=== PATIENT | female | born 1940 | race Caucasian/White ===

== ENCOUNTER → 2023-11-17 14:56 | Outpatient (REF) | payer MEDICARE, BC, SELFPAY | LOC: WDC 14:56 | PROVIDERS: ATTENDING PHYSICIAN Obstetrics & Gynecology; FAMILY PHYSICIAN Internal Medicine Geriatric Medicine | DX: Z12.31 Encounter for screening mammogram for malignant neoplasm of breast (principal) | CPT/HCPCS: 77063; 77067 ==

== ENCOUNTER → 2024-02-06 09:10 | Outpatient (REF) | payer MEDICARE, BC, SELFPAY | LOC: RCS 09:10 | PROVIDERS: ATTENDING PHYSICIAN Nurse Practitioner; FAMILY PHYSICIAN Internal Medicine Geriatric Medicine | DX: I34.0 Nonrheumatic mitral (valve) insufficiency (principal) | CPT/HCPCS: 93306 ==

== ENCOUNTER → 2024-02-17 07:57 | Outpatient (REF) | payer MEDICARE, BC, SELFPAY ==
[2024-02-17 09:06] LABS: % Basophils 0.8 % (0-2); % Eosinophils 5.8 % (0-6); % Immature Granulocytes 0.3 % (0-0.5); % Lymphocytes 21.8 % (20.5-51.1); % Monocytes 9.3 % (1.7-9.3); Absolute Basophils 0.1 10^3/uL (0-0.2); Absolute Eosinophils 0.3 10^3/uL (0-0.7); Absolute Lymphocytes 1.3 10^3/uL (1.2-3.4); Absolute Monocytes 0.6 10^3/uL (0.1-0.6); Absolute Neutrophils 3.7 10^3/uL (1.4-6.5); Hematocrit 42.6 % (37.0-47.0); Hemoglobin 14.5 g/dL (12.0-16.0); Mean Corpuscular Hgb 29.7 pg (27.0-31.0); Mean Corpuscular Volume 87.1 fL (81.0-99.0); Mean Platelet Volume 12.1 fL (7.4-10.4); Nucleated Red Blood Cells % 0 %; Platelet Count 197 10^3/uL (130-400); Red Blood Cell Count 4.89 10^6/uL (4.20-5.40); White Blood Cell Count 5.9 10^3/uL (4.8-10.8)
[2024-02-17 10:20] LABS: ALT (SGPT) 18 U/L (0-35); AST (SGOT) 28 U/L (14-36); Albumin 4.4 g/dl (3.5-5.0); Alkaline Phosphatase 89 U/L (38-126); Blood Urea Nitrogen 14 mg/dl (7-17); Calcium 9.9 mg/dl (8.4-10.2); Carbon Dioxide 29 mmol/L (22-30); Chloride 103 mmol/L (98-107); Glucose 82 mg/dl (70-99); HDL Cholesterol 77 mg/dl; LDL Cholesterol, Calculated 96 mg/dl; Potassium 4.6 mmol/L (3.5-5.1); Sodium 139 mmol/L (135-145); Total Bilirubin 0.8 mg/dl (0.2-1.3); Total Cholesterol 197 mg/dl (50-199); Total Protein 6.9 g/dl (6.3-8.2); Triglyceride 124 mg/dl (10-149); Very Low Density Lipoprotein 24 mg/dl (0-30); eGFR > 60.00
[2024-02-17 11:02] LABS: Urine Albumin Negative (Neg - Trace); Urine Bilirubin Negative (Negative); Urine Character Clear (Clear); Urine Color Yellow; Urine Glucose Negative (Negative); Urine Ketone Negative (Negative); Urine Leukocyte Trace (Negative); Urine Nitrite Negative (Negative); Urine Occult Blood Trace (Negative); Urine Specific Gravity 1.015 (<1.030); Urine Urobilinogen Negative (Neg - 1+); Urine pH 6.5 (5.0-9.0)
== END ==
LOC: REG 07:57
PROVIDERS: ATTENDING PHYSICIAN Internal Medicine Geriatric Medicine
DX: I34.0 Nonrheumatic mitral (valve) insufficiency (principal); F41.8 Other specified anxiety disorders; I48.0 Paroxysmal atrial fibrillation; R00.2 Palpitations; E78.2 Mixed hyperlipidemia; G30.9 Alzheimer's disease, unspecified; Z13.31 Encounter for screening for depression
CPT/HCPCS: 36415; 80053; 80061; 81003; 81015; 85025

== ENCOUNTER → 2024-10-26 11:04 | Outpatient (REF) | payer MEDICARE, BC, SELFPAY ==
[2024-10-26 12:49] LABS: C-Reactive Protein < 5.00 mg/L (0.0-10.00)
[2024-10-26 13:41] LABS: Erythrocyte Sed Rate 3 mm/hour (0-20)
== END ==
LOC: REG 11:04
PROVIDERS: ATTENDING PHYSICIAN Student in an Organized Health Care Education/Training Program; FAMILY PHYSICIAN Internal Medicine Geriatric Medicine
DX: M25.551 Pain in right hip (principal); Z96.641 Presence of right artificial hip joint
CPT/HCPCS: 36415; 85652; 86140

== ENCOUNTER → 2024-11-02 08:17 | Outpatient (REF) | payer MEDICARE, BC, SELFPAY | LOC: HWRAD 08:17 | PROVIDERS: ATTENDING PHYSICIAN Student in an Organized Health Care Education/Training Program; FAMILY PHYSICIAN Internal Medicine Geriatric Medicine | DX: M25.551 Pain in right hip (principal) | CPT/HCPCS: 73700 ==

== ENCOUNTER 2024-11-29 15:22 | Inpatient (IN) | payer MEDICARE, BC, SELFPAY ==
[2024-11-28 16:55] VITALS: BP 192/98
--- NOTE | 2024-11-28 17:37 | ED.GENMED ---
History of Present Illness
General
Chief Complaint: Abdominal Symptoms
Source: patient and spouse
Exam Limitations: none
Time Seen by Provider: 11/28/24 17:36
Nursing documentation reviewed up to this point in time: agreed with
History of Present Illness
History of Present Illness:
84 yo female with h/o afib on Eliquis, mitral regurgitation, anxiety/depression, migraines presents for dizziness, nausea and lightheadedness. She went to gym and did treadmill as usual at 1:30-2:00 p.m. at bedside states she was puttering
around the house around 3 p.m. when she said she became suddenly dizzy, lightheaded and nauseous. No vomiting. He took her BP and it was 176/105 and she usually has normal BP, She feels nauseous now but not dizzy or lightheaded. Denies recent head
trauma. Denies change in vision. Denies CP, SOB or abdominal pain. Denies UTI symptoms
Past History
Past History
ED Past Medical History: Arrthythmia (A-fib on Eliquis), Psychiatric (Anxiety/depression, migraines) and Other (Mitral regurgitation)
ED Past Surgical History: Orthopedic and Other (Left inguinal hernia repair, umbilical hernia repair)
Social History
Tobacco: Non-smoker
Alcohol: Occasional
Personal:
Living: with family
Review of Systems
Review of Systems
Allergies reviewed?: Yes
All Other Systems: ROS reviewed and negative except as documented in HPI and ROS
Constitutional: Denies fever or fatigue
Respiratory: Denies trouble breathing
Cardiac: Denies chest pain
ABD/GI: Reports nausea; Denies abdominal pain or vomiting
Musculoskeletal: Reports no symptoms; Denies edema
Skin: Reports no symptoms
Neurological: Reports dizzy; Denies headache, weakness or numbness
Phy Exam
Physical Exam
Physical Exam:
GENERAL: No acute distress. A&Ox3.
CONSTITUTIONAL: Afebrile.
EYES: clear, conjunctivae normal
ENMT: moist mucus membranes, Pharynx nl
RESPIRATORY: Regular respirations, nonlabored, lungs clear.
CARDIOVASCULAR: Regular rate and rhythm, no murmurs, no rubs.
GI: Soft, nontender, normal BS
MUSCULOSKELETAL: Moves with ease. Well perfused.
SKIN: Warm, dry, pink
PSYCH: Normal mood and affect. Well kept, interactive and appropriate
NEUROLOGIC: Awake, alert and oriented. CN 2-12 intact. Finger to nose intact. Rhomberg neg. Ambulates well with steady gait.. No focal neurological deficits
Course
Orders/Labs/Results
Orders:
Orders
11/28/24 16:55
EKG [Electrocardiogram (*1)] Urgent
Reason for Study: Abdominal Pain
EKG- Treatment ONCE
11/28/24 17:46
0.9% Sodium Chloride 500 ml [Nss] 500 ml IV BOLUS
Ondansetron Injectable [Zofran] 4 mg IV NOW STA
11/28/24 17:47
CT Head W/o Iv Contrast Urgent
Comment:
Reason For Exam: sudden onset nausea, dizziness on Eliquis
Ondansetron Injectable [Zofran] 4 mg .ROUTE .[facility]
11/28/24 18:05
Complete Blood Count/With Diff Urgent
Comprehensive Metabolic Panel Urgent
11/28/24 19:23
UA Reflex to Culture [Urinalysis Reflex To Culture] Urgent
Date Specimen was Collected: 11/28/24
Time Specimen was Collected: 19:19
Urine Microscopic Reflex Cult Urgent
Urine Culture Urgent
LESTER Source: U
Specimen Description:
Date Specimen was Collected: 11/28/24
Time Specimen was Collected: 19:19
11/28/24 20:35
Blood Culture Urgent
LESTER Source: Blood/Venous
Specimen Description:
11/28/24 22:32
Metoclopramide [Reglan] 5 mg IV NOW STA
11/28/24 22:43
CRP [C-Reactive Protein] Stat
ESR [Erythrocyte Sed Rate] Stat
Troponin I Stat
11/28/24 22:58
Sotalol [Betapace] 80 mg PO NOW STA
11/28/24 22:59
CR Chest - 2 Views Stat
Comment:
Reason For Exam: unexplained leukocytosis, rule out infiltrate
11/28/24 23:00
Flush (0.9% Sodium Chloride) [Flush (Nss)] See Dose Instructions IV PER PROTOCOL
Abnormal Lab Results
11/28/24 11/28/24
18:05 19:23
WBC 12.1 H 10^3/uL
(4.8-10.8)
MPV 11.8 H fL
(7.4-10.4)
Absolute Neuts (auto) 9.7 H 10^3/uL
(1.4-6.5)
Neutrophils % 80.4 H %
(42.2-75.2)
Lymphocytes % 10.2 L %
(20.5-51.1)
Glucose 123 H mg/dl
(70-99)
Ur Occult Blood Reflex 2+ A
(Negative)
Urine RBC 3-6 A /HPF
(0-2)
Urine Bacteria (Reflex) Moderate A
(Negative)
11/28/24 18:05
11/28/24 18:05
Vital Signs
Initial and Last Documented VS:
Initial Vital Signs
Temp Pulse Resp BP Pulse Ox
98.8 F 55 17 192/98 99
11/28/24 16:55 11/28/24 16:55 11/28/24 16:55 11/28/24 16:55 11/28/24 16:55
Last Documented Vital Signs
Temp Pulse Resp BP Pulse Ox
98.8 F 61 17 170/77 98
11/28/24 16:55 11/28/24 20:30 11/28/24 20:30 11/28/24 19:34 11/28/24 19:34
MDM/Problems Addressed
Differential Diagnosis Includes:
Posterior CVA/TIA, brain bleed
BPPV, vestibular neuritis, Menier's
MDM/Problems Addressed:
84 yo female with h/o dementia, afib on Eliquis, mitral regurgitation, anxiety/depression, migraines presents for dizziness, nausea and lightheadedness. She went to gym and did treadmill as usual at 1:30-2:00 p.m. at bedside states she was
puttering around the house around 3 p.m. when she said she became suddenly dizzy, lightheaded and nauseous. No vomiting. He took her BP and it was 176/105 and she usually has normal BP, She feels nauseous now but not dizzy or lightheaded. Denies
recent head trauma. Denies change in vision. Denies CP, SOB or abdominal pain. Denies UTI symptoms
Afebrile, NAD
No focal neuro deficits
6:30 p.m.
CBC: WBC 12.1, not clinically significant, otherwise unremarkable
CMP normal
U/A: no sign of infection
, Sylvester Giron MD at bedside is concerned for endocarditis as when she had it once in the past (2005?) she had very mild elevation of WBC and not many other symptoms. He states PCP at that timejust by chance ordered Blood cultures that came
back positive. He is requesting blood cultures.
Discussed with Dr. Villaseñor who agrees to one set of blood cultures
She denies feeling dizzy or lightheaded now. She is not a good historian as she has dementia.
She has no focal neurological deficits, no ataxia, no nystagmus, but has persistent nausea and was complaining of sudden onset of dizziness and has high blood pressure which states is unusual for her.
Cannot rule out posterior stroke.
agrees with all of above.
I recommend admission for neuro exam and MRI. Pt is ejvonant that she does not want to stay
9:[address] radiology report read: No acute intracranial abnormality
10:00 p.m.
Pt remains nauseous despite Zofran x 2. Denies dizziness at this time.
Plan: Admit:
Case discussed with Dr. Villaseñor who agrees with plan
Hospitalist notified of admission.
Pt to stay with her
BP improving now 162/79
*Critical Care Note
Total Time (30-74mins, 75-104mins- exclusive of procedures): Not Applicable
ED Attending Note
-
Portions of this chart may have been created with voice recognition software.� Occasional wrong word or��sound alike� substitutions may have occurred due to the inherent limitations of voice recognition software.
Discharge Plan
Departure
Patient Disposition: Admit
Date of Disposition: 11/28/24
Time of Disposition: 21:58
Admit to: Med/Surg
Presentation/result/management discussed w/ accepting MD/DO: Hospitalist
Condition: Good
Discharge Problem:
Nausea, Dizziness
Prescriptions:
No Action
tramadol 50 MG tablet
25 - 50 mg PO Q6HPRN PRN (Reason: severe pain/breakthrough pain) Qty: 5 0RF
sotalol 80 MG tablet
80 mg PO Q12H 90 Days Qty: 180 3RF
apixaban [Eliquis] 5 MG tablet
5 mg PO BID Qty: 120 3RF
Referrals:
Emil Ibarra MD [Family Provider] -
Interventions
Interventions:
*Risk Screen - Suicide Last Done: 11/28/24 16:58
*General Assessment Last Done: 11/28/24 16:58
*Neglect/Abuse Screening Last Done: 11/28/24 16:58
*ED COVID-19 Vaccine History Last Done: 11/28/24 16:58
MQ-Bzqhsa-Flqlwzmnpu Assessment Last Done: 11/28/24 17:42
Discharge Date and Time
Print Language: KYRGYZ
[2024-11-28 18:00] VITALS: BP 168/86
[2024-11-28 18:12] LABS: % Basophils 0.5 % (0-2); % Eosinophils 3.6 % (0-6); % Immature Granulocytes 0.3 % (0-0.5); % Lymphocytes 10.2 % (20.5-51.1); % Neutrophils 80.4 % (42.2-75.2); Absolute Basophils 0.1 10^3/uL (0-0.2); Absolute Eosinophils 0.4 10^3/uL (0-0.7); Absolute Lymphocytes 1.2 10^3/uL (1.2-3.4); Absolute Monocytes 0.6 10^3/uL (0.1-0.6); Absolute Neutrophils 9.7 10^3/uL (1.4-6.5); Hematocrit 43.1 % (37.0-47.0); Hemoglobin 14.9 g/dL (12.0-16.0); Mean Corp Hgb Conc. 34.6 g/dL (33.0-37.0); Mean Corpuscular Hgb 30.1 pg (27.0-31.0); Mean Corpuscular Volume 87.1 fL (81.0-99.0); Mean Platelet Volume 11.8 fL (7.4-10.4); Nucleated Red Blood Cells % 0 %; Platelet Count 228 10^3/uL (130-400); Red Blood Cell Count 4.95 10^6/uL (4.20-5.40); Red Cell Dist. Width 13.4 % (11.5-14.5); White Blood Cell Count 12.1 10^3/uL (4.8-10.8)
[2024-11-28] MEDS: NSS 500 IV (18:13)
[2024-11-28] MEDS: ZOFRAN 4 MG IV (18:14)
[2024-11-28 18:31] LABS: ALT (SGPT) 20 U/L (0-35); AST (SGOT) 28 U/L (14-36); Albumin 4.7 g/dl (3.5-5.0); Alkaline Phosphatase 102 U/L (38-126); Blood Urea Nitrogen 15 mg/dl (7-17); Calcium 9.8 mg/dl (8.4-10.2); Carbon Dioxide 28 mmol/L (22-30); Chloride 104 mmol/L (98-107); Glucose 123 mg/dl (70-99); Potassium 4.5 mmol/L (3.5-5.1); Sodium 140 mmol/L (135-145); Total Bilirubin 0.6 mg/dl (0.2-1.3); Total Protein 7.1 g/dl (6.3-8.2); eGFR > 60.00
[2024-11-28 19:00] VITALS: BP 174/86
[2024-11-28 19:34] VITALS: BP 170/77
[2024-11-28 19:39] LABS: Urine Albumin Negative (Neg - Trace); Urine Bilirubin Negative (Negative); Urine Character Clear (Clear); Urine Color Yellow; Urine Glucose Negative (Negative); Urine Ketone Negative (Negative); Urine Leukocyte Negative (Negative); Urine Nitrite Negative (Negative); Urine Occult Blood 2+ (Negative); Urine Urobilinogen Negative (Neg - 1+)
[2024-11-28 19:59] LABS: Urine Amorphous Seen; Urine Bacteria Moderate (Negative); Urine White Cell 0-2 /HPF (0-5)
[2024-11-28 21:24] VITALS: BP 158/84
--- NOTE | 2024-11-28 22:26 | HPS.HSE ---
Family Physician
-
Family Physician: Emil Ibarra
Chief Complaint
-
nausea and dizziness
History of Present Illness
This is an 84-year-old female with past medical history significant for atrial fibrillation on anticoagulation and sotalol, history of mitral insufficiency in 2005, history of bacterial endocarditis, anxiety, dementia presented to the emergency
department with acute episode of dizziness and nausea with uncontrolled hypertension.
Patient had been in usual state of health up until the event. She went to the gym in the morning and has 30 minutes of exercise with spouse. Return home in usual state of health. Then at around 3 PM she suddenly felt very sick to her stomach.
She felt nauseous and she felt dizzy. Day attempted to make sure pulse and ultimately got a reading as a sinus rhythm. The measured blood pressure of 170 systolic which was high for her. Spouse reports that her blood pressure is usually around
120s at home and as high as 150s at the physician's office. She has a pulse usually in the 50s. She had a recent echo about a year ago which was unchanged from prior. She denies having any chest pain. She denies exertional dyspnea. She denies
any urinary symptoms. She has not had any fevers or chills. She denies any headache. She has no recent falls and no recent trauma.
In the emergency department she was hypertensive to 192/100 on arrival. Pulse 61, temperature 98.9 and satting 100% on room air. ECG was not nonischemic, sinus bradycardia at a rate of 52. Troponin not done. She had a CT of the head which was
negative for bleed. There was no other acute intracranial process. UA was negative.
She had a white count of 12.1 otherwise hemogram platelets were normal. Electrolytes BUN/creatinine were in the normal range. LFTs were normal. She was given a dose of Zofran. Blood pressure is improving but she still feels quite nauseous.
Medical History
Past Medical History
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
Past Surgical History: Reports Orthopedic (Left hip replacement, right hip replacement) and Other
Social History
Tobacco: Non-smoker
Alcohol: None
Drug: None
Personal:
Employment: Retired
Family History
Family History: Not pertinent
Allergies / Home Medications
Allergies reflects when Allergies were last updated in [employer].
Home Medications with original date entered in [employer]
Allergy/Medication List:
Allergies
Allergy/AdvReac Type Severity Reaction Status Date / Time
ampicillin Allergy Unknown Verified 11/28/24 16:56
codeine Allergy Pharmacy Verified 11/28/24 16:56
to Review
Penicillins Allergy Hives Verified 11/28/24 16:56
NOT.[id number] - Not Allergy Pharmacy Uncoded 11/28/24 16:56
Converted 38. See Text. to Review
Home Medications
apixaban 5 mg tablet (Eliquis) 5 mg PO BID Blood clot prevention/tx #120 tabs 11/01/21
sotalol 80 mg tablet 80 mg PO Q12H 90 days #180 tabs 11/01/21
Review of Systems
-
Unable to obtain full review of systems at this time due to: Dementia
History Source: Patient and Family
Constitutional: Reports No Symptoms
EENT: Reports No Symptoms
Respiratory: Reports No Symptoms
Cardiac: Reports Palpitations
Abdomen/GI: Reports Nausea
: Reports No Symptoms
Musculoskeletal: Reports No Symptoms
Skin: Reports No Symptoms
Neurological: Reports No Symptoms
Endocrine: Reports No Symptoms
Hematologic/Lymphatic: Reports No Symptoms
Psych: Reports No Symptoms
Physical Exam
Vital Signs
Vital Signs
Temp Pulse Resp BP Pulse Ox
98.8 F 61 17 170/77 98
11/28/24 16:55 11/28/24 20:30 11/28/24 20:30 11/28/24 19:34 11/28/24 19:34
Physical Exam
General: Well Developed and Well Nourished
HEENT: NormoCephalic, Anicteric, Moist mucous membranes and Atraumatic
Respiratory: Clear
Cardiac: S1/S2, Regular Rhythm and Murmur (holosystolic murmur heard at apex)
Breast: Deferred by me
GI: Non Tender, Non Distended and Normal Bowel Sounds
Rectal: Deferred by Provider
Genito-urinary: Deferred by me
Musculoskeletal: No Clubbing, No Cyanosis and No Edema
Skin: Warm
Neuro: AO x 3 and Nonfocal/grossly intact
Hematologic/Lymphatic: No Lymphadenopathy
Psych: Calm
Laboratory Results
-
11/28/24 18:05
11/28/24 18:05
Laboratory Results
Total Bilirubin 0.6 mg/dl (0.2-1.3) 11/28/24 18:05
AST 28 U/L (14-36) 11/28/24 18:05
ALT 20 U/L (0-35) 11/28/24 18:05
Alkaline Phosphatase 102 U/L (38-126) 11/28/24 18:05
Data Reviewed
-
CT Scan: Report Reviewed by me
Medical Tests (Nuc Med, Echo, EKG etc): Image Personally Visualized and interpreted
Lab Data: Labs Reviewed by me
Old Records: Reviewed
Impression/Plan
-
IMPRESSION:
84 y.o female with h/o afib and MR presenting to ED with sudden onset sensation of dizziness (no vertigo), nausea and episode of hypertension. Dizziness resolved. BP improved. Nausea still persistent. CT head negative for acute bleed. Exam
benign. No history of falls/trauma. ECG non-ischemic with SB at 52, tele in the mid 60s. Mild leukocytosis but labs otherwise unremarkable. Unlikely acute intracranial bleed given CT. Differential includes atypical angina, acute gastritis,
episode of arrythmia. Spouse (a physician himself) worried about endocarditis given hx of endocarditis and some leukocytosis to 12. Patient had no fevers, chest pain, sob when she was diagnosed.
PLAN:
1. Intractable Nausea and HTN
- admit to telemetry observation
- rule out PA with repeat troponins
- trial of antiemetics and h2 blockade
- checking esr, crp
- echo in am
- no focal deficits, unlikely mass/emboli, but will get mri to rule any other intracranial process
- monitor bp for now
2. Leukocytosis - No other infectious findings. Eval for endoccarditis
- check chest xray
- esr/crp as above
- blood cultures sent
- echo as above
- no abx at this time.
3. AGNIESZKA B- rate controlled on sotalol
- continue sotalol 80 q 12
- continue apixaban 5 bid
DVT PPX - on apixaban
Code Status - Full Code
[2024-11-28] MEDS: REGLAN 5 MG IV (22:53)
[2024-11-28 22:59] LABS: Erythrocyte Sed Rate 4 mm/hour (0-20)
[2024-11-28 23:01] VITALS: BP 162/79
[2024-11-28 23:19] LABS: Troponin I < 0.012 ng/ml
[2024-11-28 23:26] LABS: C-Reactive Protein < 5.00 mg/L (0.0-10.00)
[2024-11-28] MEDS: BETAPACE 80 MG PO (23:35)
[2024-11-29 00:08] VITALS: BP 150/69
[2024-11-29 02:04] VITALS: BP 152/69
[2024-11-29 03:52] VITALS: BP 152/67
[2024-11-29] MEDS: FLUSH (NSS) 1 FLUSH IV (05:33)
[2024-11-29 06:06] LABS: Hematocrit 40.5 % (37.0-47.0); Hemoglobin 13.7 g/dL (12.0-16.0); Mean Corp Hgb Conc. 33.8 g/dL (33.0-37.0); Mean Corpuscular Hgb 30.1 pg (27.0-31.0); Mean Platelet Volume 11.9 fL (7.4-10.4); Platelet Count 205 10^3/uL (130-400); Red Blood Cell Count 4.55 10^6/uL (4.20-5.40); Red Cell Dist. Width 13.3 % (11.5-14.5); White Blood Cell Count 8.9 10^3/uL (4.8-10.8)
[2024-11-29 06:34] LABS: Blood Urea Nitrogen 9 mg/dl (7-17); Calcium 9.8 mg/dl (8.4-10.2); Carbon Dioxide 27 mmol/L (22-30); Chloride 106 mmol/L (98-107); Glucose 101 mg/dl (70-99); HDL Cholesterol 77 mg/dl; LDL Cholesterol, Calculated 109 mg/dl; Potassium 4.3 mmol/L (3.5-5.1); Sodium 141 mmol/L (135-145); Total Cholesterol 210 mg/dl (50-199); Triglyceride 124 mg/dl (10-149); Very Low Density Lipoprotein 24 mg/dl (0-30); eGFR > 60.00
[2024-11-29 07:03] VITALS: BP 160/71
[2024-11-29] MEDS: BETAPACE 80 MG PO (07:40)
[2024-11-29] MEDS: ELIQUIS 5 MG PO (07:41)
[2024-11-29 09:06] VITALS: BMI 22.2
--- NOTE | 2024-11-29 10:40 | CM ---
Addendum entered by Licha Freed 11/29/24 16:31:
Pt discharged today
Per PT/OT evals, no dc needs noted
Original Note:
CM met with pt and spouse bedside
They resides in a 2SH with 1 JOVI through garage and 3 JOVI through front door
Pt is independent with her ADLs
Has a SPC cane and WW for use as needed
Is currently attending outpt therpay through Orthopedics
Pt with ST memory impairments and forgetful
Pleasant with no behaviors
Private duty list provided to spouse per his request
PCP- Katarzyna Ibarra
Rx- Jose Francisco
Pt is OBS- LOGAN verbally reviewed
Copy provided
Of note, spouse is a retired ortho surgeon
Discharge Disposition- anticipate home with continued outpt therapy
[2024-11-29 10:49] VITALS: BP 138/79
--- NOTE | 2024-11-29 11:18 | PTCARENOTE ---
Currently out of room, in MRI department.
--- NOTE | 2024-11-29 14:31 | CON.NEURO ---
Consultation
Order
Date of Consultation: 11/29/24
Requesting Provider: Arcadio Damon DO
Reason for Consult: Rule out stroke
Neurology Consultation Note.
HPI: This is an 84-year-old right-handed woman who presented to [facility] on November 28, 2024 with dizziness.
According to the patient she developed lightheadedness and nausea after exercising at the gym yesterday. Daniela worked out on the treadmill for 30 minutes at the gym. According to Dr. Giron, patient's , her systolic blood pressure was noted
to be around 175, which is high for her. She felt 'lousy' yesterday but reports feeling much better today.
Ms. Giron has been taking Eliquis for her atrial fibrillation and reports taking her medication faithfully, though she might occasionally miss a dose. She usually skips Eliquis dose when she develops intermittent gum bleeding provoked by flossing.
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 She has chosen not to pursue Watchman's procedure/MVR to get of AC for suggested Leqembi therapy in the past.
Ms. Giron continues to be independent in ADLs however has short-term memory impairment over the last several years
ER VS: 192/98, 55, afebrile
EKG: Sinus bradycardia at 52, QTc Int : 433 ms
PDMP: Zolpidem Tartrate 5 Mg 30 tablets filled in on 10/17/2023
Labs: LDL�109.
Brain MRI without (11/29/2024)punctate mildly hyperintense DWI signal focus in the left hassan radiata, nonspecific but could represent a tiny subacute infarct.
TTE-no evidence of PFO or intra mural thrombus.
PMH: PA AFib, MCI, severe mitral regurgitation, history of endocarditis, thoracolumbar scoliosis MDD, migraine headaches, history of LS radiculopathy, insomnia
PSH: bilateral cataract surgery, BL CECELIA, bunionectomy, left inguinal hernia repair
SH: ; has 3 children, uses a cane as needed (due to recent sews syndrome)
FH: No family history of strokes
All: Penicillins, codeine, ampicillin
ROS: Constitutional: Negative. Negative for chills, fever and unexpected weight change.
HENT: Negative for ear pain, hearing loss, tinnitus and trouble swallowing.
Eyes: Negative. Negative for photophobia, pain and visual disturbance.
Respiratory: Negative for cough, choking and shortness of breath.
Cardiovascular: Negative for chest pain, palpitations and leg swelling.
Gastrointestinal: Negative for abdominal pain and vomiting.
Endocrine: Negative. Negative for cold intolerance.
Genitourinary: Negative for dysuria, flank pain and urgency.
Musculoskeletal: Positive for groin pain
Skin: Negative for rash.
Allergic/Immunologic: Negative. Negative for immunocompromised state.
Neurological: Positive for chronic short-term memory impairment
General: Well developed. In no acute distress.
Cardio: Regular rate and rhythm without murmur. Extremities are without cyanosis or edema.
Neuro:
Mental Status: Alert, oriented to person, place, year, president. Date was incorrect. Preserved comprehension. Follows complex requests consistently. No aphasia or hemineglect
Cranial Nerves: Pupils are equally round, surgical. EOMs full. Visual lam full to confrontation. No ptosis. No nystagmus. V1-V3 intact to light touch and pinprick bilaterally, symmetric. Face symmetric. Normal hearing AU. The palate
elevated well. SCMs and traps 5/5. Tongue midline. No dysarthria.
Motor: Normal bulk and tone. No pronator or arm drift. Strength 5/5 throughout. No clonus.
Reflexes: Negative grasp bilaterally
Sensory: Preserved proprioception at the toes
Coordination: No dysmetria or tremor.
Gait: deferred
Assessment and Plan:
I. Subacute left hassan radiata punctuate infarct versus artifact.
II. Hypertensive emergency
III. Chronic encephalopathy (vascular, neurodegenerative)
- Medication administration supervision
- Continue Eliquis 5 mg twice daily
-Driving safety evaluation
-Outpatient neurology follow-up
- Please recall neurology services any questions or concerns
I personally reviewed all radiology and labs along with past medical records pertinent to current medical problems. Total time spent in patient care is 60 minutes.
Thank you for allowing us to participate in the care of this patient. We will continue to follow. Please do not hesitate to contact us with any questions or concerns.
Subjective/Objective
Subjective Data
Date of Service: November 29, 2024
Objective Data
Vital Signs
Temp Pulse Resp BP Pulse Ox
37.5 C 59 19 138/79 97
11/29/24 10:58 11/29/24 10:49 11/29/24 10:49 11/29/24 10:49 11/29/24 08:54
Lab Results
11/29/24 05:31
11/29/24 05:31
Sodium 141 mmol/L (135-145) 11/29/24 05:31
Potassium 4.3 mmol/L (3.5-5.1) 11/29/24 05:31
BUN 9 mg/dl (7-17) 11/29/24 05:31
Glucose 101 mg/dl (70-99) H 11/29/24 05:31
Calcium 9.8 mg/dl (8.4-10.2) 11/29/24 05:31
LDL Cholesterol, Calc 109 mg/dl 11/29/24 05:31
Patient Allergies
ampicillin Allergy (Verified 11/28/24 16:56)
Unknown
codeine Allergy (Verified 11/28/24 16:56)
Pharmacy to Review
Penicillins Allergy (Verified 11/28/24 16:56)
Hives
NOT.[id number] - Not Converted 38. See Text. Allergy (Uncoded 11/28/24 16:56)
Pharmacy to Review
Medications
-
Active Medications
Generic Name Dose Route Start Last Admin
Trade Name Freq PRN Reason Stop Dose Admin
Acetaminophen 650 mg 11/29/24 01:17
Acetaminophen 325 Mg Tablet PO 12/27/24 01:16
Q4HPRN PRN
temp > 101 F
Al Hydrox/Mg Hydrox/Simethicone 30 ml 11/29/24 01:17
Mag/Al/Simethicone Suspension 30 Ml Cup PO 12/27/24 01:16
Q4HPRN PRN
heartburn
Apixaban 5 mg 11/29/24 08:00 11/29/24 07:41
Apixaban (Eliquis) 5 Mg Tablet PO 12/27/24 07:59 5 mg
BID TINA Administration
Metoclopramide HCl 10 mg 11/29/24 01:17
Metoclopramide 10 Mg/2 Ml Vial IV 12/27/24 01:16
Q6HPRN PRN
nausea/vomiting
Nitroglycerin 0.4 mg 11/29/24 01:17
Nitroglycerin 0.4 Mg Sl Tablet SL 12/27/24 01:16
[id number] PRN
chest pain
Sodium Chloride 0 flush 11/28/24 23:00 11/29/24 05:33
Sodium Chloride 0.9% (Flush) Syringe IV 12/26/24 22:59 1 flush
PER PROTOCOL TINA Administration
Sotalol HCl 80 mg 11/29/24 08:00 11/29/24 07:40
Sotalol 80 Mg Tablet PO 12/27/24 07:59 80 mg
Q12 TINA Administration
Home Medications
�Medication �Instructions �Recorded
apixaban 5 mg tablet (Eliquis) 5 mg PO BID Blood clot 11/01/21
prevention/tx #120 tabs
cyclosporine 0.05 % eye drops in a 1 drp BOTH EYES BIDPRN PRN dryness 11/28/24
dropperette (Restasis)
sotalol 120 mg tablet 120 mg PO BID 11/29/24
Vital Signs and Labs
-
Vital Signs and Labs:
Vital Signs
Temp Pulse Resp BP Pulse Ox
37.5 C 59 19 138/79 97
11/29/24 10:58 11/29/24 10:49 11/29/24 10:49 11/29/24 10:49 11/29/24 08:54
Lab Results
11/29/24 05:31
11/29/24 05:31
Sodium 141 mmol/L (135-145) 11/29/24 05:31
Potassium 4.3 mmol/L (3.5-5.1) 11/29/24 05:31
BUN 9 mg/dl (7-17) 11/29/24 05:31
Glucose 101 mg/dl (70-99) H 11/29/24 05:31
Calcium 9.8 mg/dl (8.4-10.2) 11/29/24 05:31
LDL Cholesterol, Calc 109 mg/dl 11/29/24 05:31
Medications
-
Medications:
Generic Name Dose Route Start Last Admin
Trade Name Freq PRN Reason Stop Dose Admin
Acetaminophen 650 mg 11/29/24 01:17
Acetaminophen 325 Mg Tablet PO 12/27/24 01:16
Q4HPRN PRN
temp > 101 F
Al Hydrox/Mg Hydrox/Simethicone 30 ml 11/29/24 01:17
Mag/Al/Simethicone Suspension 30 Ml Cup PO 12/27/24 01:16
Q4HPRN PRN
heartburn
Apixaban 5 mg 11/29/24 08:00 11/29/24 07:41
Apixaban (Eliquis) 5 Mg Tablet PO 12/27/24 07:59 5 mg
BID TINA Administration
Metoclopramide HCl 10 mg 11/29/24 01:17
Metoclopramide 10 Mg/2 Ml Vial IV 12/27/24 01:16
Q6HPRN PRN
nausea/vomiting
Nitroglycerin 0.4 mg 11/29/24 01:17
Nitroglycerin 0.4 Mg Sl Tablet SL 12/27/24 01:16
[id number] PRN
chest pain
Sodium Chloride 0 flush 11/28/24 23:00 11/29/24 05:33
Sodium Chloride 0.9% (Flush) Syringe IV 12/26/24 22:59 1 flush
PER PROTOCOL TINA Administration
Sotalol HCl 80 mg 11/29/24 08:00 11/29/24 07:40
Sotalol 80 Mg Tablet PO 12/27/24 07:59 80 mg
Q12 TINA Administration
Home Medications
-
Home Medications
apixaban 5 mg tablet (Eliquis) 5 mg PO BID Blood clot prevention/tx #120 tabs 11/01/21
cyclosporine 0.05 % eye drops in a dropperette (Restasis) 1 drp BOTH EYES BIDPRN PRN dryness 11/28/24
sotalol 120 mg tablet 120 mg PO BID 11/29/24
--- NOTE | 2024-11-29 15:04 | W.PN.HOSP.TC ---
Addendum entered and electronically signed by Arcadio Damon DO 11/29/24 15:40:
I spoke with neurologist, okay to discharge home today. Outpatient follow-up.
Original Note:
Today's Communication/Plan
-
Neurology consult
Assessment / Plan
Assessment / Plan
Gen-AAOx3, NAD
HEENT-NC, AT, anicteric, clear oral mm
Neck-supple
CV-reg, no M, +S1/S2
Lungs-clear B/L
Abd-soft, NT, ND
Ext-no edema
Musculoskeletal-no cyanosis, clubbing
Skin-warm and dry
Neuro-grossly non-focal
Psych-calm, cooperative
Subacute stroke -involving left hassan radiata, noted on MRI. Possibly explaining her dizziness on presentation. Suspect hypertensive etiology for stroke, doubt embolic.
Consult neurology.
Echocardiogram shows LVEF 70 to 75%, no regional wall motion abnormality, stage II diastolic dysfunction, moderate to severe eccentric mitral regurgitation. No significant change compared to prior echocardiogram from January 2024.
Elevated blood pressure -suspect underlying essential hypertension. Patient does not check blood pressures at home. Her is a retired orthopedic surgeon. Discussed in detail with patient and to start checking pressures at home and
follow-up closely with PCP.
Blood pressure on presentation was 192/98, last pressure reading was 138/79 today.
Paroxysmal atrial fibrillation - continue Eliquis and sotalol. At home she is on sotalol 120 mg twice daily. Unclear why she is currently on 80 mg twice daily in the hospital, will adjust dose.
I did contact her drier and grinder tender Dr. Gilliam to update him regarding the hospitalization.
History of bacterial endocarditis -March 2006.
Osteoporosis
Alzheimer's dementia -mild.
Full code
updated at the bedside.
Anticipated Discharge: Within 24 hours
Subjective/Interval History
-
Date of Service: November 29, 2024
Patient seen and examined. No complaints, eager to go home.
Objective Data
-
Labs:
Laboratory Results
11/29/24
05:31
WBC 8.9
Hgb 13.7
Hct 40.5
Plt Count 205
Sodium 141
Potassium 4.3
Chloride 106
Carbon Dioxide 27
BUN 9
Creatinine 0.6
Glucose 101 H
Calcium 9.8
Vital Signs:
Vital Signs
Temp Pulse Resp BP Pulse Ox
99.5 F 59 19 138/79 97
11/29/24 10:58 11/29/24 10:49 11/29/24 10:49 11/29/24 10:49 11/29/24 08:54
I&O
11/28/24 11/29/24 11/30/24
06:59 06:59 06:59
Intake Total 200 / 200
Balance 200 / 200
Review of Systems
-
History Source: Patient
All other systems: Reviewed and negative
--- NOTE | 2024-11-29 15:05 | PTOTSP ---
The patient is independent with ambulation without a device, no strength or balance deficits noted. Patient and agree that the patient is back to her baseline. No PT needs identified at this time, will sign off. Discussed with RN.
[2024-11-29 15:35] VITALS: BP 107/70
--- NOTE | 2024-11-29 15:43 | W.DS.TRANS ---
DC Summary - [employer] Super[employer]
-
Discharge Instructions:
Discharge Diagnosis/Procedures Subacute stroke, elevated blood pressure
Diet Low Fat,Low Cholesterol
Activity As tolerated
Driving Restrictions No driving
Bathing Restrictions None
Instructions:
Stand-Alone Forms:
Changes to Home Medications: No
Discharge Medications:
DC Medications w/original date entered in [facility]
apixaban 5 mg tablet (Eliquis) 5 mg PO BID Blood clot prevention/tx #120 tabs 11/01/21
cyclosporine 0.05 % eye drops in a dropperette (Restasis) 1 drp BOTH EYES BIDPRN PRN dryness 11/28/24
sotalol 120 mg tablet 120 mg PO BID 11/29/24
Home Medication Changes
Pending Results: No
== END 2024-11-29 16:01 | disposition home or self-care (01) | DRG 65 ==
LOC: ED 15:22
PROVIDERS: Registered Nurse; ADMITTING PHYSICIAN Internal Medicine; ATTENDING PHYSICIAN Hospitalist; CONSULT PHYSICIAN Psychiatry & Neurology Neurology; EMERGENCY PHYSICIAN Emergency Medicine; FAMILY PHYSICIAN Internal Medicine Geriatric Medicine
DX: I63.89 Other cerebral infarction (principal); F02.A3 Dementia in other diseases classified elsewhere, mild, with mood disturbance; F02.A4 Dementia in other diseases classified elsewhere, mild, with anxiety; I10 Essential (primary) hypertension; G30.9 Alzheimer's disease, unspecified; I48.0 Paroxysmal atrial fibrillation; D72.829 Elevated white blood cell count, unspecified; I34.0 Nonrheumatic mitral (valve) insufficiency; M81.0 Age-related osteoporosis without current pathological fracture; F32.A Depression, unspecified; G43.909 Migraine, unspecified, not intractable, without status migrainosus; M41.9 Scoliosis, unspecified; G47.00 Insomnia, unspecified; M54.17 Radiculopathy, lumbosacral region; Z86.79 Personal history of other diseases of the circulatory system; Z79.01 Long term (current) use of anticoagulants
CPT/HCPCS: 70450; 70551; 71046; 80048; 80053; 80061; 81003; 81015; 84484; 85025; 85027; 85652; 86140; 87040; 87086; 93005; 93306; 96361; 96374; 96375; 99285

== ENCOUNTER → 2024-12-22 11:15 | Outpatient (REF) | payer MEDICARE, BC, SELFPAY | LOC: RAD 11:15 | PROVIDERS: ATTENDING PHYSICIAN Internal Medicine Cardiovascular Disease; FAMILY PHYSICIAN Internal Medicine Geriatric Medicine | DX: I48.0 Paroxysmal atrial fibrillation (principal); E78.5 Hyperlipidemia, unspecified; R42 Dizziness and giddiness; I63.9 Cerebral infarction, unspecified; I34.0 Nonrheumatic mitral (valve) insufficiency | CPT/HCPCS: 93880 ==

== ENCOUNTER → 2025-02-17 11:20 | Outpatient (REF) | payer MEDICARE, BC, SELFPAY | LOC: RCS 11:20 | PROVIDERS: ATTENDING PHYSICIAN Internal Medicine Cardiovascular Disease; FAMILY PHYSICIAN Internal Medicine Geriatric Medicine | DX: I48.0 Paroxysmal atrial fibrillation (principal); I34.0 Nonrheumatic mitral (valve) insufficiency | CPT/HCPCS: 93306 ==

== ENCOUNTER → 2025-05-18 07:51 | Outpatient (REF) | payer MEDICARE, BC, SELFPAY ==
[2025-05-18 09:29] LABS: ALT (SGPT) 22 U/L (0-35); AST (SGOT) 26 U/L (14-36); Albumin 4.3 g/dl (3.5-5.0); Alkaline Phosphatase 73 U/L (38-126); HDL Cholesterol 80 mg/dl; LDL Cholesterol, Calculated 64 mg/dl; Total Protein 6.8 g/dl (6.3-8.2); Very Low Density Lipoprotein 22 mg/dl (0-30)
== END ==
LOC: REG 07:51
PROVIDERS: ATTENDING PHYSICIAN Internal Medicine Cardiovascular Disease; FAMILY PHYSICIAN Internal Medicine Geriatric Medicine
DX: I48.0 Paroxysmal atrial fibrillation (principal); I63.9 Cerebral infarction, unspecified
CPT/HCPCS: 36415; 80061; 80076

== ENCOUNTER → 2025-07-06 08:57 | Outpatient (REF) | payer MEDICARE, BC, SELFPAY | LOC: WDC 08:57 | PROVIDERS: ATTENDING PHYSICIAN Obstetrics & Gynecology; FAMILY PHYSICIAN Internal Medicine Geriatric Medicine | DX: Z12.31 Encounter for screening mammogram for malignant neoplasm of breast (principal) | CPT/HCPCS: 77063; 77067 ==